=== PATIENT | male | born 1995 | race Two or more races ===

== ENCOUNTER → 2025-02-20 | Emergency (ER) | payer OTHER ==
[~2025-02-20] VITALS: Ht 172.7 cm; Wt 81.6 kg
[~2025-02-20] MED LIST: CEFTRIAXONE SODIUM 1,000 MG VIAL IM ONE; CEFTRIAXONE SODIUM 1,000 MG VIAL ONE; KETOROLAC TROMETHAMINE 60 MG VIAL IM ONE
[2025-02-21 01:38] LABS: BASO % 0.8 % (0.1-1.2); EOS # 0.64 (0.04-0.54); EOS % 4.4 % (0.7-7.0); LYMPH # 1.64 (1.18-3.74); LYMPH % 11.3 % (19.3-53.1); MEAN PLATELET VOLUME 9.00 fl (9.4-12.4); MONO # 1.30 (0.24-0.82); MONO % 9.0 % (4.7-12.5); NEUT # 10.74 (1.56-6.13); NEUT % 74.2 % (34.0-71.1); RED CELL DISTRIBUTION WIDTH 12.6 % (11.6-14.4)
[2025-02-21 02:00] LABS: COVID-19 AG NEGATIVE (NEGATIVE)
== END | disposition home or self-care (01) ==
LOC: ER 19:23
PROVIDERS: General Practice
DX: J02.8 Acute pharyngitis due to other specified organisms (principal); R50.9 Fever, unspecified; M79.10 Myalgia, unspecified site; Z20.822 Contact with and (suspected) exposure to COVID-19